=== PATIENT | male | born 1935 | race Caucasian/White ===

== ENCOUNTER 2021-12-21 09:37 | Day surgery (SDC) | payer MEDICARE ==
[2021-12-21] MEDS ORDERED: LIDOCAINE HCL 2% 100 MG/5 ML IJ ONE (09:38)
[2021-12-21] MEDS ORDERED: Depo-Medrol 40 MG/ML IM ONE (09:38)
[2021-12-21] MEDS ORDERED: Lactated Ringers 1,000 ML IV ONE (11:11)
[2021-12-21] MEDS ORDERED: DIPRIVAN 200 MG/20 ML IV ONE (11:30)
--- NOTE | 2021-12-21 12:42 | XRAY ---
Indication: Bilateral L4-S1 MBB. Intraoperative fluoroscopy provided for 8 seconds. Single digital spot image submitted for interpretation demonstrate posterior needle tips projecting over the expected left and right L4-S1 nerve roots. Correlate with intraoperative findings/report.
--- NOTE | 2021-12-21 12:44 | XRAY ---
8 seconds fluoroscopy time in surgery for bilateral L4-S1 MBB.
== END 2021-12-21 12:05 | disposition home or self-care (01) ==
LOC: SDC-PAIN 09:37
PROVIDERS: ATTEND Psychiatry & Neurology Pain Medicine
DX: M47.816 Spondylosis without myelopathy or radiculopathy, lumbar region (principal); E11.9 Type 2 diabetes mellitus without complications; Z79.899 Other long term (current) drug therapy
CPT/HCPCS: 64493; 64494; 72020; 77002; 82947; J1030; J2704